=== PATIENT | male | born 1950 | race African-American/Black ===

== ENCOUNTER 2024-12-04 14:03 | Emergency (ER) | payer SELFPAY ==
[~2024-12-04] VITALS: Ht 165.1 cm; Wt 75.0 kg
[2024-12-04 14:17] VITALS: BP 168/87; RESP 18; TEMP 98.8; O2SAT 99
[2024-12-04 14:41] VITALS: PULSE 122; O2SAT 99
== END 2024-12-04 20:14 | disposition left against medical advice (07) ==
LOC: ER 14:03
DX: H57.10 Ocular pain, unspecified eye (principal); Z53.21 Procedure and treatment not carried out due to patient leaving prior to being seen by health care provider